=== PATIENT | female | born 2000 | race Two or more races ===

== ENCOUNTER → 2024-04-18 | Outpatient (REF) | payer OTHER ==
[2024-04-18 16:13] LABS: Trichomonas vaginalis (AMP) NOT DETECTED (NEGATIVE)
[2024-04-18 16:37] LABS: GC DNA AMPLIFICATION NEGATIVE (NEGATIVE)
== END ==
LOC: M ST 14:41
PROVIDERS: ATTEND Nurse Practitioner Family
DX: Z34.80 Encounter for supervision of other normal pregnancy, unspecified trimester (principal)

== ENCOUNTER → 2024-04-27 | Outpatient (CLI) | payer OTHER ==
[2024-04-27 15:43] LABS: HEMATOCRIT 37.6 % (36.0-47.0); HEMOGLOBIN 12.6 g/dl (12.0-15.5); MEAN CORPUSCULAR HEMOGLOBIN 29.6 pg (27.0-33.0); MEAN CORPUSCULAR HGB CONC 33.5 g/dl (32.0-36.5); MEAN CORPUSCULAR VOLUME 88.5 fl (80.0-96.0); PLATELET COUNT, AUTOMATED 355 10^3/uL (150-450); RED BLOOD COUNT 4.25 10^6/uL (4.00-5.40); WHITE BLOOD COUNT 11.6 10^3/uL (4.0-10.0)
[2024-04-27 16:53] LABS: HIV 1&2 SCREEN NEGATIVE (NEGATIVE)
== END ==
LOC: M PLALAB 11:30
PROVIDERS: ATTEND Nurse Practitioner Family
DX: Z34.80 Encounter for supervision of other normal pregnancy, unspecified trimester (principal)

== ENCOUNTER → 2024-05-18 | Outpatient (CLI) | payer OTHER | LOC: M WHC 14:05 | PROVIDERS: ATTEND Nurse Practitioner Family | DX: O09.899 Supervision of other high risk pregnancies, unspecified trimester (principal) ==

== ENCOUNTER → 2024-06-23 | Outpatient (CLI) | payer OTHER | LOC: M WHC 09:01 | PROVIDERS: ATTEND Nurse Practitioner Family | DX: Z34.80 Encounter for supervision of other normal pregnancy, unspecified trimester (principal); Z3A.19 19 weeks gestation of pregnancy ==

== ENCOUNTER → 2024-10-06 | Outpatient (CLI) | payer OTHER | LOC: M WHC 10:16 | PROVIDERS: ATTEND Obstetrics & Gynecology | DX: O09.299 Supervision of pregnancy with other poor reproductive or obstetric history, unspecified trimester (principal); Z3A.35 35 weeks gestation of pregnancy ==

== ENCOUNTER → 2024-10-24 | Outpatient (REF) | payer OTHER | LOC: M SFHCWAGY 12:47 | PROVIDERS: ATTEND Nurse Practitioner Family | DX: Z34.83 Encounter for supervision of other normal pregnancy, third trimester (principal) ==

== ENCOUNTER 2024-11-09 05:03 | Inpatient (IN) | payer OTHER ==
[2024-11-09] VITALS (10 sets, daily range): BP systolic 119–137; BP diastolic 66–97; TEMP 97.4; O2SAT 95–100
[~2024-11-09] VITALS: Ht 154.9 cm; Wt 66.7 kg
[~2024-11-09 05:03] MED LIST: SERT25TA85 PO
[2024-11-09] MEDS ORDERED: OXYTOCIN DRIP 30 UNITS in IV 1 EA IV PRN (05:20)
[2024-11-09] MEDS ORDERED: TRANEXAMIC ACID INJection 1,000 MG in NS 100 ML IV PRN (05:20)
[2024-11-09] MEDS ORDERED: METHYLERGONOVINE MALEATE 0.2 MG/ML 1 ML VIAL IM PRN (05:20)
[2024-11-09] MEDS: LACTATED RINGER'S 1000 ML IV STA (05:49)
[2024-11-09] MEDS ORDERED: TUMS500C PO (05:56)
[2024-11-09] MEDS ORDERED: PRENTAB9 PO (05:56)
[2024-11-09 06:15] LABS: PLATELET COUNT, AUTOMATED 322 10^3/uL (150-450)
[2024-11-09] MEDS: LR 1,000 ML IV SCH ×4 (06:38→12:05)
[2024-11-09] MEDS: BICITRA 30 ML SOLN UDC PO ONE ×2 (07:14→11:50)
[2024-11-09] MEDS: ceFAZolin SODIUM 2 GM in DEXTROSE 5% (D5W) ADV/MINI-BAG 50 ML IV ONE (07:14)
[2024-11-09] MEDS ORDERED: MORPHINE PRES-FREE INJ 10 MG/10 ML VIAL As Ordered ONE (07:56)
[2024-11-09] MEDS ORDERED: PHENYLephrine 500MCG 5ML (100MCG/ML) SYRINGE As Ordered ONE (07:56)
[2024-11-09] MEDS ORDERED: ONDANSETRON 4MG 2ML VIAL As Ordered ONE (07:56)
[2024-11-09] MEDS ORDERED: OXYTOCIN 30UNITS IN 0.9% NaCl 500ML IV BAG As Ordered ONE (07:56)
[2024-11-09] MEDS ORDERED: KETOROLAC 30 MG/ML 1 ML VIAL As Ordered ONE (08:20)
[2024-11-09] MEDS: PRENATAL VITAMINS CHEWABLE TABLET PO SCH (09:00)
[2024-11-09] MEDS ORDERED: NALOXONE INJ 0.4 MG/1 ML VIAL IV PRN ×2 (09:10)
[2024-11-09] MEDS ORDERED: **NOTE PATIENT COMMENT** MISC XX SCH (09:10)
[2024-11-09] MEDS ORDERED: ONDANSETRON 4MG 2ML VIAL IV PRN (09:10)
[2024-11-09] MEDS: SLF 3 ML SYR IV SCH (09:16)
[2024-11-09] MEDS ORDERED: diphenhydrAMINE 50 MG/ML VIAL As Ordered ONE (09:37)
[2024-11-09] MEDS: diphenhydrAMINE 50 MG/ML VIAL IV PRN (09:39)
[2024-11-09 09:54] LABS: HEPATITIS C VIRUS ABY INDEX < 0.02 INDEX (<0.8)
[2024-11-09] MEDS: PERCOCET 5MG/325MG TAB PO ONE (11:32)
[2024-11-09] MEDS ORDERED: PERCOCET 5MG/325MG TAB PO PRN (12:05)
[2024-11-09] MEDS ORDERED: CALCIUM CARBONATE 500 MG CHEW U/D PO PRN (12:05)
[2024-11-09] MEDS ORDERED: MOM 30 ML SUSPENSION UDC PO PRN (12:05)
[2024-11-09] MEDS ORDERED: RHOGAM 300MCG (1500IU) INJ IM SCH (12:05)
[2024-11-09] MEDS ORDERED: SIMETHICONE 80MG CHEW TAB PO PRN (12:05)
[2024-11-09] MEDS ORDERED: IBUP80TA PO (12:21)
[2024-11-09] MEDS ORDERED: COLA100C5 PO (12:21)
[2024-11-09] MEDS: KETOROLAC 30 MG/ML 1 ML VIAL IV SCH (14:46)
[2024-11-09] MEDS: DOCUSATE SODIUM 100 MG CAPSULE PO SCH (20:19)
[2024-11-09] MEDS: SERTRALINE HCL 25 MG TABLET PO SCH (21:05)
[2024-11-10 02:00] VITALS: BP 132/76; O2SAT 100
[2024-11-10] MEDS: PERCOCET 5MG/325MG TAB PO PRN (05:39)
[2024-11-10 05:42] VITALS: BP 124/65; O2SAT 98
[2024-11-10 07:09] LABS: PLATELET COUNT, AUTOMATED 244 10^3/uL (150-450)
[2024-11-10 09:58] VITALS: BP 132/91; O2SAT 98
[2024-11-10] MEDS: IBUPROFEN 800 MG TAB PO SCH (11:15)
[2024-11-10 14:00] VITALS: BP 134/90; O2SAT 98
[2024-11-10 17:58] VITALS: BP 134/85; O2SAT 98
[2024-11-10] MEDS: SERTRALINE HCL 25 MG TABLET PO SCH (21:12)
[2024-11-10 21:36] VITALS: BP 127/81; O2SAT 100
[2024-11-11 01:44] VITALS: BP 134/82; O2SAT 98
[2024-11-11 05:41] VITALS: BP 131/80; O2SAT 97
[2024-11-11] MEDS ORDERED: MEASLES,MUMPS,RUBELLA VACCINE INJ (MMR-II) SC.IMMUN ONE (09:00)
== END 2024-11-11 12:30 | disposition home or self-care (01) | DRG 773 ==
LOC: M LDI 05:03 → M OBS 10:30
PROVIDERS: ADMIT Obstetrics & Gynecology; ATTEND Obstetrics & Gynecology
PROC: 10D00Z1 Extraction of Products of Conception, Low, Open Approach (ICD-10-PCS; principal; 2024-11-09 07:30)
DX: O34.211 Maternal care for low transverse scar from previous cesarean delivery (principal); Z3A.39 39 weeks gestation of pregnancy; Z37.0 Single live birth

== ENCOUNTER → 2025-02-19 | Outpatient (REF) | payer OTHER ==
[~2025-02-19] MED LIST changes: +COLA100C5 PO; +IBUP80TA PO; +PRENTAB9 PO; +TUMS500C PO
== END ==
LOC: M PLALAB 14:52
PROVIDERS: ATTEND Obstetrics & Gynecology
DX: Z12.4 Encounter for screening for malignant neoplasm of cervix (principal); Z53.9 Procedure and treatment not carried out, unspecified reason

== ENCOUNTER → 2025-02-20 | Outpatient (REF) | payer OTHER ==
[2025-02-22 17:03] LABS: HPV APTIMA Not Detected (Not Detected)
== END ==
LOC: M SFHCWAGY 13:34
PROVIDERS: ATTEND Obstetrics & Gynecology
DX: Z12.4 Encounter for screening for malignant neoplasm of cervix (principal)
CPT/HCPCS: 87624; G0123